=== PATIENT | female | born 1970 | race African-American/Black ===

== ENCOUNTER 2020-06-10 15:26 | Emergency (ER) | payer MEDICAID, SELFPAY ==
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
[2020-06-10 15:44] VITALS: BP 165/90; PULSE 77; RESP 16; TEMP 36.8; O2SAT 99
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
[2020-06-10] MEDS: KETOROLAC (*BKC) 60 MG/2 ML VIAL IM (16:25)
== END 2020-06-10 16:52 | disposition home or self-care (01) ==
PROVIDERS: Emergency Provider Nurse Practitioner Family; PCP Physician Assistant
DX: S39.012A Strain of muscle, fascia and tendon of lower back, initial encounter (principal); V43.62XA Car passenger injured in collision with other type car in traffic accident, initial encounter; M54.31 Sciatica, right side; Z87.891 Personal history of nicotine dependence; I10 Essential (primary) hypertension; Z95.1 Presence of aortocoronary bypass graft
CPT/HCPCS: 72100; 96372; 99213; G0463; J1885

== ENCOUNTER 2020-06-18 15:54 | Outpatient (CLI) | payer BC, SELFPAY ==
--- NOTE | ~2020-06-18 | MM_ITS ---
EXAMINATION: MM screening myah BI w shabbir HISTORY: Screening mammogram TECHNIQUE: Craniocaudal and mediolateral oblique 3-D tomosynthesis images were obtained and synthetic 2-D images were generated. CAD analysis was submitted and interpreted. COMPARISON: No prior mammogram is available for comparison at this institution. BREAST PARENCHYMAL COMPOSITION: There are scattered areas of fibroglandular density. FINDINGS: RIGHT BREAST: An asymmetry is present in the anterior third of the outer breast 5 cm from the nipple on the craniocaudal view. LEFT BREAST: There is no evidence of suspicious mass, calcification, or architectural distortion to s uggest malignancy. IMPRESSION: 1. Right breast asymmetry on the craniocaudal view which may represent the patient's baseline however no comparison is currently available. 2. Comparison with prior mammograms is necessary. BI-RADS Category 0: Incomplete: Needs comparison with prior mammograms. Reviewed, dictated and finalized at location A. IMPRESSION: 1. Right breast asymmetry on the craniocaudal view which may represent the murphy ent's baseline however no comparison is currently available. 2. Comparison with prior mammograms is necessary. BI-RADS Category 0: Incomplete: Needs comparison with prior mammograms.
== END 2020-06-18 15:55 | disposition home or self-care (01) ==
PROVIDERS: PCP Physician Assistant; Visit Provider Physician Assistant
DX: Z12.31 Encounter for screening mammogram for malignant neoplasm of breast (principal); R92.8 Other abnormal and inconclusive findings on diagnostic imaging of breast
CPT/HCPCS: 77063; 77067

== ENCOUNTER 2020-08-24 13:14 | Outpatient (CLI) | payer BC, SELFPAY ==
--- NOTE | ~2020-08-24 | MMUS_ITS ---
EXAMINATION: MM diagnostic mammo unilat RT, US breast RT limited HISTORY: Follow-up right breast asymmetry TECHNIQUE: Additional 3-D tomosynthesis images of the right breast were performed and synthetic 2-D i mages were generated. CAD analysis was submitted and interpreted. High resolution right breast ultras ound was performed. COMPARISON: 06/18/2020 BREAST PARENCHYMAL COMPOSITION: Breast composed of scattered areas of fibroglandular density FINDINGS: MAMMOGRAPHIC FINDINGS: There is persistent asymmetry laterally in the right breast on CC view no discrete abnormality is mariaelena ntified on medial lateral or MLO views. ULTRASOUND: Limited left breast ultrasound: At 9:00, 8 cm from the nipple there are 2 adjacent cysts measuring up to 7 mm in conglomeration. No suspicious solid masses are identified. There is a 4 mm cyst at 10:00, 9 cm from the nipple. IMPRESSION: 1. Focal right breast asymmetry lateral aspect of the right breast is most likely benign. No definite sonographic correlate. Benign cysts are identified in the right breast at 9 and 10:00. 2. Recommend 6 month follow-up diagnostic right mammogram BI-RADS category 3, probably benign findings. Reviewed, dictated and finalized at location A. HER ASSISTANT IMPRESSION: 1. Focal right breast asymmetry lateral aspect of the right breast is most like ly benign. No definite sonographic correlate. Benign cysts are identified in th e right breast at 9 and 10:00. 2. Recommend 6 month follow-up diagnostic right mammogram BI-RADS category 3, probably benign findings.
== END 2020-08-24 13:15 | disposition home or self-care (01) ==
PROVIDERS: PCP Physician Assistant; Visit Provider Physician Assistant
DX: R92.8 Other abnormal and inconclusive findings on diagnostic imaging of breast (principal)
CPT/HCPCS: 76642; 77061; 77065; G0279

== ENCOUNTER 2020-12-10 17:48 | Emergency (ER) | payer BC, SELFPAY ==
[2020-12-10 17:53] VITALS: BP 147/88; PULSE 77; RESP 18; TEMP 36.2; O2SAT 99
--- NOTE | 2020-12-10 19:16 | ED.GENADULT ---
HPI - General Adult General Chief complaint: Back Pain/Injury Stated complaint: back pain Time Seen by Provider: 12/10/20 18:47 Source: patient and RN notes reviewed Mode of arrival: ambulatory Limitations: no limitations History of Present Illness HPI narrative: Patient is 50 years old -Cypriot female presents with lower back pain mainly on the right side radiating to her right foot, shooting pain, tingling and numbness. Started 2 days ago. History of sciatica. Patient denies any recent trauma. Patient denies any trouble bowel movement, urination or saddle numbness or focal neuro deficit. Related Data Home Medications Medication Instructions Recorded Confirmed amlodipine 06/10/20 aspirin 06/10/20 cyclobenzaprine mg 06/10/20 furosemide 06/10/20 ibuprofen 06/10/20 isosorbide mononitrate mg PO 06/10/20 lisinopril 06/10/20 metoprolol tartrate 06/10/20 nitroglycerin mg 06/10/20 Allergies Allergy/AdvReac Type Severity Reaction Status Date / Time Penicillins Allergy Unknown Verified 09/11/18 14:16 sulfamethoxazole Allergy Unknown Verified 09/11/18 14:16 trimethoprim Allergy Unknown Verified 09/11/18 14:16 Chocolate Allergy Unknown Uncoded 09/11/18 14:16 Review of Systems Review of Systems: Narrative: CONSTITUTIONAL: Denies fever, chills, or sweats. EYES: Denies visual changes, redness, or discharge. ENT: Denies rhinorrhea, congestion, sore throat, or otalgia. CARDIOVASCULAR: Denies chest pain, palpitations, or edema. RESPIRATORY: Denies cough or dyspnea. GASTROINTESTINAL: Denies abdominal pain, nausea, vomiting, or diarrhea. GENITOURINARY: Denies dysuria or hematuria. SKIN: Denies rash or itching. MUSCULOSKELETAL: Denies back pain, joint pain, or myalgia. NEUROLOGIC: Denies headache, numbness, or weakness. PSYCHIATRIC: Denies anxiety or depression. [facility] Past Medical History Medical History Closed left ankle fracture Heart disease Hypertension Surgical History Surgical History History of heart surgery Double bypass History of hysterectomy History of tonsillectomy Family History Family History Father Acute myocardial infarction Mother Hypertension Diabetes mellitus Social History Social History Smoking status: Former smoker Tobacco type: cigarettes Second hand tobacco smoke exposure: Yes Smoking end date: 09/18/04 Alcohol intake: current Substance use: never Gender identity (if verbalized by the patient): Female Exam Narrative: Exam Narrative: General appearance: Well-developed, well-nourished Skin: Normal color Head: Normocephalic, nontraumatic Eyes: Clear conjunctiva ENT: Oropharynx normal, ears normal, nose normal Neck: Supple, nontender Chest and respiratory: Airway patent, no respiratory distress, no accessory muscle use Heart: Regular rate/rhythm Abdomen: Soft, nontender, no organomegaly, quiet bowel sounds Vascular: Normal peripheral pulses, normal capillary refill. Musculoskeletal: Diffuse pain across lumbar spine mainly at the right buttock, Neurologic: Alert and oriented ?3, positive right lower extremity leg raising test Course Course Emergency Course: Improving Vital Signs Vital signs: Vital Signs Temperature 36.2 C L 12/10/20 17:53 Pulse Rate 77 12/10/20 17:53 Respiratory Rate 18 12/10/20 17:53 Blood Pressure 147/88 H 12/10/20 17:53 Pulse Oximetry 99 12/10/20 17:53 Temperature 36.2 C L 12/10/20 17:53 Pulse Rate 77 12/10
[2020-12-10] MEDS: HYDROmorphone HCL INJ (*CRX) 1 MG/ML SYR IV PUSH (19:37)
[2020-12-10] MEDS: ONDANSETRON HCL ODT 4 MG TABLET PO (19:38)
[2020-12-10] MEDS: IBUPROFEN 400 MG TABLET 800 MG PO (19:38)
== END 2020-12-10 19:41 | disposition home or self-care (01) ==
PROVIDERS: Emergency Provider Emergency Medicine; PCP Physician Assistant
DX: M54.16 Radiculopathy, lumbar region (principal); Z79.82 Long term (current) use of aspirin; I11.9 Hypertensive heart disease without heart failure; Z87.891 Personal history of nicotine dependence; Z95.1 Presence of aortocoronary bypass graft
CPT/HCPCS: 96374; 99284; A9270; J1170

== ENCOUNTER 2021-07-16 14:45 | Outpatient (RCR) | payer BC, SELFPAY ==
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
--- NOTE | 2021-07-13 11:54 | PCPTNOTE ---
Patient called & cancelled scheduled appointment this date due to not feeling well.
--- NOTE | 2021-07-16 15:14 | PCPTNOTE ---
Patient did not show up for scheduled appointment this date. Called & had to leave a message
--- NOTE | 2021-07-20 10:03 | PCPTNOTE ---
Patient did not show up for scheduled appointment this date. Called and left message about missed appointment. Reminded of upcoming appointment on Monday07/23/21 @ 8:00am.
--- NOTE | 2021-07-23 08:09 | PCPTNOTE ---
Patient did not show up for scheduled appointment this date. Left message on phone. Will DC therapy due to repeated no show.
--- NOTE | 2021-07-23 08:10 | PCPTNOTE ---
Admitting Provider: Attending Provider: Julia Morris, CIARA Patient:Javier Glover Date of :1970 Physical Therapy Discharge Summary Patient has not returned for any further treatments since her initial evaluation on 07/08/21. Due to her repeated no show of therapy visits, she will discharged from therapy services at this time. Her goals have been not met due to she was not seen for any follow up therapy visits. Thank you for referring this patient to [facility]. Please review, sign, date and return this discharge summary ANTONIO. I have been updated about the patient's current status and I agree with discharge from the above service at this time. Referring Physician Date
== END 2021-07-23 15:49 | disposition home or self-care (01) ==
LOC: ANHPT 14:45
PROVIDERS: PCP Physician Assistant; Visit Provider Physician Assistant
DX: M54.30 Sciatica, unspecified side (principal)
CPT/HCPCS: 97110; 97162

== ENCOUNTER 2021-08-22 11:33 | Emergency (ER) | payer BC, SELFPAY ==
--- NOTE | ~2021-08-22 | XR_ITS ---
EXAMINATION: XR tibia fibula LT 2V, XR foot LT min 3V, XR ankle LT min 3V DATE: 08/22/2021 12:06 INDICATION: Lateral left ankle pain post fall TECHNIQUE: 1. Anteroposterior and lateral views of the left tibia and fibula were obtained. 2. Anteroposterior, mortise, additional oblique and lateral view of the left ankle were obtained. 3. Dorsoplantar, two oblique and lateral views of the left foot were obtained. COMPARISON: None. FINDINGS: Old fractures of the distal left tibia and fibula which have healed in essentially anatomic alignment . There is some heterotopic ossification along the distal tibiofibular syndesmosis. Suggestion of a t iny minimally displaced avulsion fracture at the tip of the medial malleolus. No other fractures iden tified. Profiled joint spaces appear relatively preserved. Small Achilles and plantar calcaneal spurs . No ankle joint effusion. Mild soft tissue swelling about the tip of the lateral malleolus. IMPRESSION: 1. Old healed distal left tibia and fibular fractures with suggestion of an acute minimally displaced avulsion fracture at the tip of the medial malleolus. Differential would include an additional or he terotopic ossicle related to chronic trauma. Correlate for point tenderness at this location. Reviewed, dictated and finalized at location A. AL SALES REPRESENTATIVE IMPRESSION: 1. Old healed distal left tibia and fibular fractures with suggestion of an acu te minimally displaced avulsion fracture at the tip of the medial malleolus. Di fferential would include an additional or heterotopic ossicle related to chroni c trauma. Correlate for point tenderness at this location. IMPRESSION: 1. Old healed distal left tibia and fibular fractures with suggestion of an acu te minimally displaced avulsion fracture at the tip of the medial malleolus. Di fferential would include an additional or heterotopic ossicle related to chroni c trauma. Correlate for point tenderness at this location.
[2021-08-22 11:35] VITALS: BP 146/94; PULSE 100; RESP 16; TEMP 36.2; O2SAT 99
--- NOTE | 2021-08-22 11:59 | PC.NURSE ---
Pt to XRAY via w/c at this time.
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
== END 2021-08-22 13:45 | disposition home or self-care (01) ==
PROVIDERS: Emergency Provider Nurse Practitioner; PCP Physician Assistant
DX: S82.52XA Displaced fracture of medial malleolus of left tibia, initial encounter for closed fracture (principal); I10 Essential (primary) hypertension; E78.5 Hyperlipidemia, unspecified; W01.0XXA Fall on same level from slipping, tripping and stumbling without subsequent striking against object, initial encounter
CPT/HCPCS: 29515; 73590; 73610; 73630; 99284

== ENCOUNTER 2022-02-08 09:57 | Outpatient (CLI) | payer BC, SELFPAY ==
[2022-02-08 11:39] LABS: Iron 98 ug/dL (37-170)
[2022-02-08 11:48] LABS: Percent Iron Saturation 34 % (20-50)
== END 2022-02-08 09:58 | disposition home or self-care (01) ==
PROVIDERS: PCP Physician Assistant; Visit Provider Nurse Practitioner Family
DX: R74.8 Abnormal levels of other serum enzymes (principal)
CPT/HCPCS: 36415; 81256; 82728; 83540; 83550; 86038

== ENCOUNTER 2024-04-10 11:05 | Outpatient (CLI) | payer OTHER, SELFPAY ==
--- NOTE | ~2024-04-10 | XR_ITS ---
XR hip BI 2V w AP pelvis Ordering provider: Julia Morris, CIARA History: . Low back pain . Comparison: None. FINDINGS: BONES: No acute fracture or dislocation. HIP JOINT SPACES: Mild osteoarthritic changes bilaterally SACROILIAC JOINT SPACES/LUMBAR SPINE: The sacroiliac joint spaces are normal. Mild degenerative shah es of the visualized lower lumbar spine. PUBIC SYMPHYSIS: Normal. SOFT TISSUES: Normal. IMPRESSION: No acute osseous abnormality of the bilateral hips and pelvis. Reviewed, dictated and finalized at location A.
--- NOTE | ~2024-04-10 | XR_ITS ---
3 VIEWS LUMBAR SPINE Ordering provider: Julia Morris, CIARA History: . Low back pain . Comparison: June 10, 2020 FINDINGS: VERTEBRAL BODIES: Sacralization of L5. No visible fracture or subluxation. Degenerative changes of th e spine. DISK SPACES: Normal Facet joint disease at the level of L4-L5 and L5-S1. SOFT TISSUES: Normal. IMPRESSION: No acute osseous abnormality lumbar spine. Reviewed, dictated and finalized at location A.
== END 2024-04-10 11:06 | disposition home or self-care (01) ==
LOC: ANHIMG 11:14
PROVIDERS: PCP Physician Assistant; Visit Provider Physician Assistant
DX: M54.50 Low back pain, unspecified (principal); M25.551 Pain in right hip
CPT/HCPCS: 72100; 73521

== ENCOUNTER 2024-06-07 09:05 | Emergency (ER) | payer OTHER, SELFPAY ==
--- NOTE | 2024-06-07 09:20 | ED.BACK ---
HPI - Back Pain/Injury General Chief Complaint: Back Pain/Injury Stated Complaint: Back Pain Time Seen by Provider: 06/07/24 09:20 Source: patient Mode of arrival: ambulatory Limitations: no limitations History of Present Illness HPI Narrative: 53 yo F presents with hx of chronic back pain. c/o low back pain without radiation. PCP ordering PT and MRI but having difficulting finding somewhere to accept pt's insurance. Ambulatory with steady gait. No numbness or tingling to lower extremities. No loss of bowel or bladder. 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 No injury. All systems reviewed and negative except as noted above. Related Data Home Medications Medication Instructions Recorded Confirmed amlodipine 5 mg tablet 5 mg PO DAILY 06/10/20 06/07/24 aspirin 81 mg chewable tablet 81 mg PO DAILY 06/10/20 06/07/24 furosemide 20 mg tablet 20 mg PO DAILY 06/10/20 06/07/24 lisinopril 40 mg tablet 40 mg PO DAILY 06/10/20 06/07/24 metoprolol tartrate 50 mg tablet 50 mg PO DAILY 06/10/20 06/07/24 atorvastatin 80 mg tablet 80 mg PO DAILY 12/23/21 06/07/24 spironolactone 25 mg tablet 25 mg PO DAILY 12/23/21 06/07/24 Allergies Allergy/AdvReac Type Severity Reaction Status Date / Time Penicillins Allergy Intermediate Rash Verified 06/07/24 09:12 sulfamethoxazole Allergy Intermediate Rash Verified 06/07/24 09:12 trimethoprim Allergy Intermediate Rash Verified 06/07/24 09:12 Chocolate Allergy Severe Swelling Uncoded 06/07/24 09:12 of Lip/Tongue/Throat Review of Systems Review of Systems: CONSTITUTIONAL: Denies fever, chills, or sweats. EYES: Denies visual changes, redness, or discharge. ENT: Denies rhinorrhea, congestion, sore throat, or otalgia. CARDIOVASCULAR: Denies chest pain, palpitations, or edema. RESPIRATORY: Denies cough or dyspnea. GASTROINTESTINAL: Denies abdominal pain, nausea, vomiting, or diarrhea. GENITOURINARY: Denies dysuria or hematuria. SKIN: Denies rash or itching. MUSCULOSKELETAL: Reports low back pain. Denies joint pain, or myalgia. NEUROLOGIC: Denies headache, numbness, or weakness. PSYCHIATRIC: Denies anxiety or depression. All other systems reviewed are negative, except as documented in HPI. [facility] Past Medical History Medical History (Updated 06/07/24 @ 09:27 by Divya Swanson NP) Anemia Anxiety Arthritis Closed left ankle fracture Elevated liver enzymes Heart attack Heart disease Hyperlipemia Hypertension Nondisplaced fracture of medial malleolus of left tibia Obese Osteoporosis Surgical History Surgical History History of History of heart surgery Double bypass History of hysterectomy History of tonsillectomy Family History Family History Father Acute myocardial infarction Mother Hypertension Diabetes mellitus Other Cerebrovascular accident Depression Social History Social History Smoking status: Former smoker Tobacco type: cigarettes Second hand tobacco smoke exposure: Yes Smoking end date: 09/18/04 Alcohol intake: current Substance use: never Living arrangements: with family Occupation/Education: unemployed Gender identity (if verbalized by the patient): Female Sexual Orientation (if Verbalized by the Patient): Straight or Heterosexual Comments At time of signature, agree with nursing past medical, surgical, social and family history. There is no relevant family history pertinent to the presenting complaint. Exam Narrative: GENERAL: This is a well-nourished, well-developed patient, in no apparent distress. HEAD: normocephalic, atraumatic. EYES: PERRL. Sclera clear/white. Vision is grossly intact. EARS: External ears normal NOSE: External nose normal . NECK: Neck supple,
[2024-06-07 11:21] VITALS: BP 141/87; PULSE 70; RESP 16; TEMP 36.8; O2SAT 98
== END 2024-06-07 09:34 | disposition home or self-care (01) ==
PROVIDERS: Emergency Provider Nurse Practitioner Family; PCP Physician Assistant
DX: M54.50 Low back pain, unspecified (principal); Z87.891 Personal history of nicotine dependence; M19.90 Unspecified osteoarthritis, unspecified site; I25.2 Old myocardial infarction; E78.5 Hyperlipidemia, unspecified; I10 Essential (primary) hypertension; M81.0 Age-related osteoporosis without current pathological fracture; E66.9 Obesity, unspecified; Z68.41 Body mass index [BMI] 40.0-44.9, adult; Z95.1 Presence of aortocoronary bypass graft
CPT/HCPCS: 99213; G0463

== ENCOUNTER 2024-08-01 19:02 | Emergency (ER) | payer OTHER, SELFPAY ==
[2024-08-01 19:07] VITALS: BP 158/86; PULSE 77; RESP 16; TEMP 36.6; O2SAT 100
--- NOTE | 2024-08-01 19:10 | ED.URI ---
HPI - URI/Sore Throat General Chief Complaint: Upper Respiratory Infection Stated Complaint: Dizzines/Sinus Time Seen by Provider: 08/01/24 19:10 Source: patient, RN notes reviewed and old records reviewed Mode of arrival: ambulatory Limitations: no limitations History of Present Illness HPI Narrative: 53-year-old female presents to the [facility] with complaints of sinus congestion, frontal headache. Patient reports intermittent dizziness. Symptoms x2 days. Denies any blurry vision or change in vision. Denies any numbness or tingling. No chest pain or shortness of breath, denies any coughing. Denies any fevers Related Data Home Medications Medication Instructions Recorded Confirmed amlodipine 5 mg tablet 5 mg PO DAILY 06/10/20 08/01/24 aspirin 81 mg chewable tablet 81 mg PO DAILY 06/10/20 08/01/24 furosemide 20 mg tablet 20 mg PO DAILY 06/10/20 08/01/24 lisinopril 40 mg tablet 40 mg PO DAILY 06/10/20 08/01/24 metoprolol tartrate 50 mg tablet 50 mg PO DAILY 06/10/20 08/01/24 atorvastatin 80 mg tablet 80 mg PO DAILY 12/23/21 08/01/24 spironolactone 25 mg tablet 25 mg PO DAILY 12/23/21 08/01/24 Allergies Allergy/AdvReac Type Severity Reaction Status Date / Time Penicillins Allergy Intermediate Rash Verified 08/01/24 19:08 sulfamethoxazole Allergy Intermediate Rash Verified 08/01/24 19:08 trimethoprim Allergy Intermediate Rash Verified 08/01/24 19:08 Chocolate Allergy Severe Swelling Uncoded 08/01/24 19:08 of Lip/Tongue/Throat Review of Systems Review of Systems: All systems reviewed & are unremarkable except as noted in HPI and below Constitutional: Constitutional: Reports no additional constitutional complaints ENT: Reports as per HPI Cardiovascular: Cardiovascular: Reports no additional cardiovascular complaints, Denies chest pain and Denies dyspnea Respiratory: Respiratory: Reports no additional respiratory complaints, Denies chest congestion, Denies cough and Denies dyspnea Gastrointestinal: Gastrointestinal: Reports no additional gastrointestinal complaints, Denies abdominal pain, Denies nausea and Denies vomiting Musculoskeletal: Musculoskeletal: Reports no additional musculoskeletal complaints Integumentary/Breasts: Skin/Breast: Reports system reviewed and no additional complaints, except as docu PMFSH Past Medical History Medical History Anemia Anxiety Arthritis Closed left ankle fracture Elevated liver enzymes Heart attack Heart disease Hyperlipemia Hypertension Nondisplaced fracture of medial malleolus of left tibia Obese Osteoporosis Surgical History Surgical History History of History of heart surgery Double bypass History of hysterectomy History of tonsillectomy Family History Family History Father Acute myocardial infarction Mother Hypertension Diabetes mellitus Other Cerebrovascular accident Depression Social History Social History Smoking status: Former smoker Tobacco type: cigarettes Second hand tobacco smoke exposure: Yes Smoking end date: 09/18/04 Alcohol intake: current Substance use: never Living arrangements: with family Occupation/Education: unemployed Gender identity (if verbalized by the patient): Female Sexual Orientation (if Verbalized by the Patient): Straight or Heterosexual Comments At the time of my signature, I reviewed and agree with the nursing past medical, surgical, social, and family history. There is no relevant family history pertinent to the patient complaint. Exam Const: General: cooperative, healthy appearing, comfortable, no acute distress, well developed, alert and well nourished Nutritional Appearance: well nourished Orientation/consciousness: patient oriented x3 Limitations: no limitations HENMT: Head: normal to inspection Ears: hearing grossly normal bilaterally, external ears normal, TM's normal bilaterally, EAC's normal, mastoids normal and no periauricular adenopathy Face/Nose/Sinus: Normal external nose present, No nasal discharge present, normal facial exam, face symmetric and sinus tenderness Face and sinus: normal facial exam and face symmetric Mouth: Yes Normal oral and palatal mucosa present, Yes lip normal and Yes tongue normal Throat: uvula midline, postnasal drainage and no uvular edema Eyes: General: appearance normal, both eyes and all related structures Alignment and Position: alignment normal Periorbital: periorbital findings normal Neck: Neck: normal visual inspection, full ROM, no lymphadenopathy and no meningeal signs Chest: Chest palpation & inspection: normal inspection of the chest Resp: Effort & Inspection: normal respiratory effort and able to speak in complete sentences Auscultation: clear to auscultation bilaterally, no crackles, no rales, no rhonchi and no wheezes Cardio: Rate: regular rate Skin: General skin exam: normal color and no rashes or lesions noted Lesions: no lesions Rashes: no rashes Wounds: no wounds Neuro: General: patient oriented x3, gait normal, tone normal, moves all extremities and no meningeal signs Cognition (Neuro): normal cognition Speech: normal speech Gait exam (Neuro): Normal gait present Extrem: General: normal to inspection, full ROM, capillary refill normal and normal gait Psych: Appearance: grossly normal and well kempt Mental Status: mental status grossly normal Speech and movement: Normal speech and movement present and Clear speech present Affect: normal affect Attitude: cooperative Course Course Level of Care: Express Care Visit Vital Signs Vital signs: Vital Signs Temperature 97.8 F 08/01/24 19:07 Pulse Rate 77 08/01/24 19:07 Respiratory Rate 16 08/01/24 19:07 Blood Pressure 158/86 H 08/01/24 19:07 Pulse Oximetry 100 08/01/24 19:07 Oxygen Delivery Room Air 08/01/24 19:07 Temperature 97.8 F 08/01/24 19:07 Pulse Rate 77 08/01/24 19:07 Respiratory Rate 16 08/01/24 19:07 Blood Pressure 158/86 H 08/01/24 19:07 Pulse Oximetry 100 08/01/24 19:07 Oxygen Delivery Room Air 08/01/24 19:07 Reviewed MDM - URI/Sore Throat MDM Narrative Medical decision making narrative: Patient sitting comfortably in exam room. Nontoxic, vitals stable except blood pressure mildly elevated. Patient presents with 2 day history of URI symptoms. No treatment prior to arrival patient's flu and COVID test was negative Patient appropriate for outpatient treatment of viral URI and follow-up Discharge instructions reviewed with patient, as well as provided in writing per nursing staff. The instructions also include specific and strict return/GO TO THE ER as well as f/u information. All questions have been answered, and the patient deny any further questions with discharge and discharge plan. Some parts of this dictation were generated by voice recognition software and may contain typographical and/or grammatical inaccuracies. Differential Diagnosis Differential diagnosis: Likely upper respiratory infection, otitis media, sinusitis, viral infection, influenza and pharyngitis Lab Data Labs: Lab Results 08/01/24 Range/Units 19:15 POC Influenza A Ag Negative (Negative) POC Influenza B Ag Negative (Negative) POC SARS CoV-2 Ag Negative (Negative) Reviewed Critical Care Time Critical Care Time Critical Care Time: No Discharge Plan Discharge Clinical Impression: Sinusitis Patient Disposition: Home, Self-Care Condition: Stable Instructions: Sinusitis (ED) Additional Instructions: Today your blood pressure was 158/86. Is recommended follow-up with primary care provider within 2 weeks to have this rechecked Your rapid COVID test were negative Your rapid flu test was negative Your symptoms are likely due to a viral illness, which is not treated with antibiotics. -Alternate Tylenol and Motrin per package directions for fever or pain. -Antihistamine medication such as Benadryl at night and Zyrtec/Claritin/Edna during the day can help improve symptoms. -doing daily nasal irrigations can help relieve pressure your sinuses. Things like a Neti pot -Use Flonase twice a day for 5 days then daily to help reduce the inflammation and dry up your sinuses. -You can also use Coricidin HBP or Mucinex. Be sure to drink plenty of water with these medications at least 8 ounces with every dose and it is important to drink 8 to 10 glasses of water per day. Water is a natural decongestant -Eat and drink things that are easy to swallow, like tea or soup, or popsicles. -Oral rinses such as: Salt water gargles and/or may use topical anesthetic (eg. Chloraseptic spray) or lozenges to relieve dryness or throat pain). -Frequent hand washing or hand security tester is one of the best ways to prevent spread of infection. -Using a vaporizer or humidifier at night will also help thin secretions and help with coughing up phlegm. -Follow up with primary care provider in 7-10 days if condition is not improving - For new or worsening symptoms go directly to the nearest ER Patient Language: Romanian Prescriptions: No Action amlodipine 5 mg tablet 5 mg PO DAILY metoprolol tartrate 50 mg tablet 50 mg PO DAILY furosemide 20 mg tablet 20 mg PO DAILY lisinopril 40 mg tablet 40 mg PO DAILY aspirin 81 mg Tablet,Chewable 81 mg PO DAILY methocarbamol 750 mg tablet 750 mg PO Q8H PRN (Reason: muscle pain/spasm) Qty: 30 0RF atorvastatin 80 mg tablet 80 mg PO DAILY spironolactone 25 mg tablet 25 mg PO DAILY Follow-up/Referrals: Alexandra,CIARA Sigala [Primary Care Provider] - 1 Week ([facility] care follow up blood pressure check 158/86) Stand Alone Forms: Work/School Release IP Time of Disposition: 19:33
[2024-08-01 19:38] LABS: EDCOVIDSCREEN Negative (Negative); EDINFLUASCREEN Negative (Negative); EDINFLUBSCREEN Negative (Negative)
== END 2024-08-01 19:35 | disposition home or self-care (01) ==
PROVIDERS: Emergency Provider Nurse Practitioner; PCP Physician Assistant
DX: J32.9 Chronic sinusitis, unspecified (principal); I10 Essential (primary) hypertension; E78.5 Hyperlipidemia, unspecified; I25.2 Old myocardial infarction; Z79.82 Long term (current) use of aspirin; Z79.899 Other long term (current) drug therapy; Z87.891 Personal history of nicotine dependence; Z20.822 Contact with and (suspected) exposure to COVID-19
CPT/HCPCS: 87426; 87804; 99212; G0463

== ENCOUNTER 2025-03-10 13:37 | Emergency (ER) | payer OTHER, SELFPAY ==
--- NOTE | 2025-03-10 13:45 | ED_ITS ---
HPI - Back Pain/Injury General Chief Complaint: Back Pain/Injury Stated Complaint: sharp back pain Time Seen by Provider: 03/10/25 13:40 Source: patient Mode of arrival: ambulatory Limitations: no limitations History of Present Illness HPI Narrative: Patient is a 54-year-old female who presents with low back pain and spasms started approximately 2 hours prior to arrival when she was reaching up to a high shelf at work. States she heard a pop and then started having the sharp pain and radiating down left thigh. When she sat down pain started radiating down both thighs. Patient has had similar episodes in the past last being roughly 2 years ago. Patient has had workup including MRI with no significant findings. Denies any bowel or bladder incontinence. Has not taken anything for pain. Did not take blood pressure medicine today. Related Data Home Medications ?Medication ?Instructions ?Recorded ?Confirmed ?Last Taken ?Type amlodipine 5 mg tablet 5 mg PO DAILY 06/10/20 08/01/24 Unknown History aspirin 81 mg chewable tablet 81 mg PO DAILY 06/10/20 08/01/24 Unknown History furosemide 20 mg tablet 20 mg PO DAILY 06/10/20 08/01/24 Unknown History lisinopril 40 mg tablet 40 mg PO DAILY 06/10/20 08/01/24 Unknown History metoprolol tartrate 50 mg tablet 50 mg PO DAILY 06/10/20 08/01/24 Unknown History atorvastatin 80 mg tablet 80 mg PO DAILY 12/23/21 08/01/24 Unknown History spironolactone 25 mg tablet 25 mg PO DAILY 12/23/21 08/01/24 Unknown History Allergies Allergy/AdvReac Type Severity Reaction Status Date / Time Penicillins Allergy Intermediate Rash Verified 03/10/25 13:56 sulfamethoxazole Allergy Intermediate Rash Verified 03/10/25 13:56 trimethoprim Allergy Intermediate Rash Verified 03/10/25 13:56 Chocolate Allergy Severe Swelling Uncoded 03/10/25 13:56 of Lip/Tongue/Throat Review of Systems Review of Systems: All systems reviewed & are unremarkable except as noted in HPI and below Constitutional: Constitutional: Denies body ache(s), Denies chills, Denies fatigue, Denies fever(s), Denies headache(s), Denies malaise and Denies weakness Eyes: Eyes: Denies blurry vision, Denies irritation and Denies loss of vision ENT: Denies otalgia, Denies headache(s), Denies nasal discharge, Denies sinus pain and Denies sore throat Cardiovascular: Cardiovascular: Denies chest pain, Denies irregular heart rhythm and Denies dyspnea Respiratory: Respiratory: Denies dyspnea Gastrointestinal: Gastrointestinal: Denies abdominal pain, Denies melena, Denies hematochezia, Denies diarrhea, Denies nausea and Denies vomiting Musculoskeletal: Musculoskeletal: Reports back pain, Denies myalgias and Denies arthralgias Integumentary/Breasts: Skin/Breast: Denies pruritus and Denies rash Neurologic: Denies headache(s), Denies loss of vision and Denies weakness Psychiatric: Psychiatric: Reports no additional psychiatric complaints Endocrine: Endocrine: Denies fatigue PMFSH Past Medical History Medical History Obese Elevated liver enzymes Nondisplaced fracture of medial malleolus of left tibia Osteoporosis Heart attack Arthritis Anxiety Anemia Hyperlipemia Closed left ankle fracture Heart disease Hypertension Surgical History Surgical History History of History of tonsillectomy History of heart surgery Double bypass History of hysterectomy Family History Family History Father Acute myocardial infarction Mother Hypertension Diabetes mellitus Other Cerebrovascular accident Depression Social History Social History Smoking status: Former smoker Tobacco type: cigarettes Second hand tobacco smoke exposure: Yes Smoking end date: 09/18/04 Alcohol intake: current Substance use: never Living arrangements: with family Occupation/Education: unemployed Gender identity (if verbalized by the patient): Female Sexual Orientation (if Verbalized by the Patient): Straight or Heterosexual Comments At time of signature, agree with nursing past medical, surgical, social and family history. There is no relevant family history pertinent to the presenting complaint. Exam Const: General: cooperative, healthy appearing, comfortable, no acute distress and well nourished Nutritional Appearance: well nourished [place] ation/consciousness: patient oriented x3 Limitations: no limitations HENMT: Head: normal to inspection, normocephalic and atraumatic Ears: hearing grossly normal bilaterally and external ears normal Face/Nose/Sinus: Normal external nose present, normal facial exam and face symmetric Face and sinus: normal facial exam and face symmetric Mouth: Yes lip normal Eyes: General: appearance normal, both eyes and all related structures Alignment and Position: alignment normal and position normal Periorbital: periorbital findings normal Eyelids: eyelids normal Pupils: Equal, round and reactive pupils present EOM: EOMs intact bilaterally Neck: Neck: normal visual inspection, full ROM and supple Chest: Chest palpation & inspection: normal inspection of the chest Resp: Effort & Inspection: normal respiratory effort and able to speak in complete sentences Auscultation: clear to auscultation bilaterally Cardio: Rate: regular rate Rhythm: regular rhythm Heart sounds: S1 normal heart sound present and S2 normal heart sound present GI: Inspection: normal to inspection Back/Spine/Pelvis: Back: no CVA tenderness Cervical Spine: normal cervical lordosis, cervical ROM normal, No cervical muscular tenderness and No Cervical spine tenderness Thoracic/Lumbar Spine: thoracic and lumbar spine normal to inspection, pain with thoraco-lumbar ROM, paraspinal muscle tenderness bilaterally in the mid lumbar and in the lower lumbar, No thoracic spinal tenderness and No lumbar spinal tenderness Skin: General skin exam: normal color and no rashes or lesions noted Neuro: General: patient oriented x3 and moves all extremities Cranial nerv es: Yes Equal, round and reactive pupils present Cognition (Neuro): normal cognition Speech: normal speech Gait exam (Neuro): Normal gait present Motor exam (neuro): 5/5 motor strength present throughout, Normal motor muscle tone present throughout and Motor abnormalities not present Sensory Exam: normal sensation Extrem: General: normal to inspection, full ROM and no edema Psych: Appearance: grossly normal and well kempt Mental Status: mental status grossly normal Speech and movement: Normal speech and movement present Affect: normal affect Attitude: cooperative Thought process: Normal thought process present Course Course Emergency Course: Patient is aware of diagnosis, understands and agrees to treatment plan. Anticipatory guidance given. Patient agrees to follow-up as directed and is aware of reasons to seek care at the emergency department. Portions of this record may have been created with voice recognition software Level of Care: Express Care Visit Vital Signs Vital signs: Vital Signs Temperature 36.7 C 03/10/25 13:49 Pulse Rate 83 03/10/25 13:49 Respiratory Rate 16 06/23/25 13:49 Blood Pressure 181/102 H 03/10/25 13:49 Pulse Oximetry 99 03/10/25 13:49 Temperature 36.7 C 03/10/25 13:49 Pulse Rate 83 03/10/25 13:49 Respiratory Rate 16 03/10/25 13:49 Blood Pressure 181/102 H 03/10/25 13:49 Pulse Oximetry 99 03/10/25 13:49 Reviewed MDM - Back Pain/Injury MDM Narrative Medical decision making narrative: Pt well hydrated appearing, in no respiratory distress, hemodynamically stable. Recommend supportive care. The patient is stable at time of discharge the clinical impression was discussed and the patient was given the opportunity to ask questions, which were addressed as completely as possible given the information available at present. Anticipatory guidance and return to care precautions were discussed and the importance of primary care follow-up was stressed and encouraged. The patient voiced understanding of the plan, indications to return, and the need for follow-up. Exam findings show no acute concerns or changes Patient is appropriate for outpatient treatment and follow-up. Differential Diagnosis Differential diagnosis: Likely lumbar radiculopathy, sciatica, strain of lumbar region and discitis Medical Records Attestation: I reviewed the patient's medical records. Discharge Plan Discharge Clinical Impression: Sciatica Qualifiers: Laterality: bilateral Qualified Code(s): M54.31 - Sciatica, right side Strain of lumbar region Qualifiers: Encounter type: initial encounter Qualified Code(s): S39.012A - Strain of muscle, fascia and tendon of lower back, initial encounter Patient Disposition: Home Condition: Stable Instructions: Low Back Strain (ED) Additional Instructions: Take there is in the morning with food, take muscle relaxers every 8 hours as needed for muscle spasm. do not drive or make any important decisions while on this medication for it can make you drowsy Exercise:Combine aerobic exercise, like walking or swimming, with specific exercises to keep the muscles in your back and abdomen strong and flexible.bed rest is not recommended. Proper Lifting:Be sure to lift heavy items with your legs, not your back. Do not bend over to pick something up. Keep your back straight and bend at your knees. Weight:Maintain a healthy weight. Being overweight puts added stress on your lower back. Avoid Smoking:Both the smoke and the nicotine cause your spine to age faster than normal. Proper Posture:Good posture is important for avoiding future problems. A therapist can teach you how to safely stand, sit, and lift. Use warm moist heat or ice to help with pain. Follow up with Primary provider in 2-3 days, This may become a chronic condition and they will be the one to help manage your pain and order additional testing. Follow-up with your doctor for further care and evaluation or seek ER if you develop problems with bladder/bowel function, weakness or loss of feeling in one or both of your legs. Your blood pressure was elevated above 120/80 today at Urgent Care. This puts you above the threshold for follow up visit with a primary care provider. High blood pressure does not usually cause any symptoms, however it may lead to kidney failure, stroke, heart disease just to name a few if untreated . Many people are anxious when seeing a provider or nurse. As a result, you are not diagnosed with hypertension at this time unless your blood pressure is persistently high at two office visits at least one week apart. Some things that can help lower blood pressure are lifestyle modifications, such as light exercise, decreased salt in diet, and weight loss. It is important to follow up with a PCP about this within 1 week. Patient Language: Kinyarwanda Prescriptions: New prednisone 20 mg tablet 40 mg PO DAILY 5 Days Qty: 10 0RF baclofen 10 mg tablet 10 mg PO TID 5 Days Qty: 15 0RF lidocaine 5 % adhesive patch,medicated 1 patch topical DAILY Qty: 15 0RF Rx Instructions: leave on most painful area for up to 12 hrs No Action amlodipine 5 mg tablet 5 mg PO DAILY metoprolol tartrate 50 mg tablet 50 mg PO DAILY furosemide 20 mg tablet 20 mg PO DAILY lisinopril 40 mg tablet 40 mg PO DAILY aspirin 81 mg Tablet,Chewable 81 mg PO DAILY atorvastatin 80 mg tablet 80 mg PO DAILY spironolactone 25 mg tablet 25 mg PO DAILY Follow-up/Referrals: Alexandra,CIARA Sigala [Primary Care Provider] - 3 Days Stand Alone Forms: Work/School Release IP Time of Disposition: 14:24
[2025-03-10 13:49] VITALS: BP 181/102; PULSE 83; RESP 16; TEMP 36.7; O2SAT 99
== END 2025-03-10 14:31 | disposition home or self-care (01) ==
PROVIDERS: Emergency Provider Nurse Practitioner Family; PCP Physician Assistant
DX: M54.31 Sciatica, right side (principal); S39.012A Strain of muscle, fascia and tendon of lower back, initial encounter; I10 Essential (primary) hypertension; E78.5 Hyperlipidemia, unspecified; I25.2 Old myocardial infarction; Z87.891 Personal history of nicotine dependence; X50.0XXA Overexertion from strenuous movement or load, initial encounter; Y99.0 Civilian activity done for income or pay
CPT/HCPCS: 99213; G0463

== ENCOUNTER 2025-06-25 16:27 | Emergency (ER) | payer OTHER, SELFPAY ==
[2025-06-25 16:38] VITALS: BP 183/95; PULSE 80; RESP 16; TEMP 36.8; O2SAT 96
--- NOTE | 2025-06-25 18:02 | ED.UPPEXIN ---
HPI - Extremity Injury (Upper) General Chief Complaint: Extremity Injury, Upper Stated Complaint: left shoulder injury Time Seen by Provider: 06/25/25 16:47 Source: patient and RN notes reviewed Mode of arrival: ambulatory Limitations: no limitations History of Present Illness HPI narrative: 54-year-old female patient presents today with left shoulder pain. This morning around 10:00 a.m., patient was reaching above her head at work and felt a sharp pain in her anterior shoulder that then radiated down to her hand. As she continued to work she noted some tingling to the arm and hand as well. She took a dose of naproxen bit later, which did not provide much relief. She currently rates her pain a 07/28. Related Data Home Medications ?Medication ?Instructions ?Recorded ?Confirmed ?Last Taken ?Type amlodipine 5 mg tablet 5 mg PO DAILY 06/10/20 08/01/24 Unknown History aspirin 81 mg chewable tablet 81 mg PO DAILY 06/10/20 08/01/24 Unknown History furosemide 20 mg tablet 20 mg PO DAILY 06/10/20 08/01/24 Unknown History lisinopril 40 mg tablet 40 mg PO DAILY 06/10/20 08/01/24 Unknown History metoprolol tartrate 50 mg tablet 50 mg PO DAILY 06/10/20 08/01/24 Unknown History atorvastatin 80 mg tablet 80 mg PO DAILY 12/23/21 08/01/24 Unknown History hydralazine 25 mg tablet mg 06/25/25 Unknown History hydralazine 50 mg tablet mg 06/25/25 Unknown History Allergies Allergy/AdvReac Type Severity Reaction Status Date / Time Penicillins Allergy Intermediate Rash Verified 06/25/25 16:35 sulfamethoxazole Allergy Intermediate Rash Verified 06/25/25 16:35 trimethoprim Allergy Intermediate Rash Verified 06/25/25 16:35 [facility] Past Medical History Medical History Obese Elevated liver enzymes Nondisplaced fracture of medial malleolus of left tibia Osteoporosis Heart attack Arthritis Anxiety Anemia Hyperlipemia Closed left ankle fracture Heart disease Hypertension Surgical History Surgical History History of History of tonsillectomy History of heart surgery Double bypass History of hysterectomy Family History Family History (Reviewed 06/25/25 @ 18:05 by Anjelica Roque, [facility], ) Father Acute myocardial infarction Mother Hypertension Diabetes mellitus Other Cerebrovascular accident Depression Social History Social History (Reviewed 06/25/25 @ 18:05 by Anjelica Roque, [facility], ) Smoking status: Former smoker Tobacco type: cigarettes Second hand tobacco smoke exposure: Yes Smoking end date: 09/18/04 Alcohol intake: current Substance use: never Living arrangements: with family Occupation/Education: unemployed Gender identity (if verbalized by the patient): Female Sexual Orientation (if Verbalized by the Patient): Straight or Heterosexual Comments At time of signature, I have reviewed and agree with nursing past medical, surgical, social and family history unless otherwise noted. Please see nursing chart for further information. There is no relevant family history pertinent to the presenting complaint Exam Narrative: GENERAL: Well-appearing, well-nourished, and in no acute distress. HEAD: Normocephalic, atraumatic. EYES: EOMI. No redness or drainage. Conjunctivae normal. ENT: Mucous membranes pink and moist. NECK: Normal AROM. CHEST: No respiratory distress. EXTREMITIES: Left shoulder: Tenderness to the anterior and superior shoulder soft tissue. No bony tenderness. No tenderness to the posterior shoulder. Pain with range of motion of the shoulder at approximately 90? in all directions as well as internal and external rotation. No tenderness to the biceps or triceps. No edema, ecchymosis, deformity noted. Distal sensation intact. Capillary refill normal. Radial pulse normal. SKIN: Warm, dry, no rash. Capillary refill normal. Normal skin turgor. NEURO: No focal deficits. Alert and oriented x3. Gait steady. PSYCH: Normal affect. No signs of depression or anxiety. Course Course Level of Care: Express Care Visit Vital Signs Vital signs: Vital Signs Temperature 98.2 F 06/25/25 16:38 Pulse Rate 80 06/25/25 16:38 Respiratory Rate 16 06/25/25 16:38 Blood Pressure 183/95 H 06/25/25 16:38 Pulse Oximetry 96 06/25/25 16:38 Oxygen Delivery Room Air 06/25/25 16:38 Temperature 98.2 F 06/25/25 16:38 Pulse Rate 80 06/25/25 16:38 Respiratory Rate 16 06/25/25 16:38 Blood Pressure 183/95 H 06/25/25 16:38 Pulse Oximetry 96 06/25/25 16:38 Oxygen Delivery Room Air 06/25/25 16:38 Reviewed MDM - Extremity Injury (Upper) MDM Narrative Medical decision making narrative: 54-year-old female patient presents today with left shoulder pain. This morning around 10:00 a.m., patient was reaching above her head at work and felt a sharp pain in her anterior shoulder that then radiated down to her hand. As she continued to work she noted some tingling to the arm and hand as well. Upon exam, Tenderness to the anterior and superior shoulder soft tissue. No bony tenderness. No tenderness to the posterior shoulder. Pain with range of motion of the shoulder at approximately 90? in all directions as well as internal and external rotation. Recommend ice and continued NSAID with ortho follow up. She has no bony tenderness, deformity, or traumatic injury to indicate an xray at this time. Patient agrees with plan. Differential Diagnosis Differential diagnosis: Likely other (Shoulder strain, ligamentous injury,AC separation, rotator cuff injury) Critical Care Time Critical Care Time Critical Care Time: No Discharge Plan Discharge Clinical Impression: Injury of left shoulder Qualifiers: Encounter type: initial encounter Qualified Code(s): S49.92XA - Unspecified injury of left shoulder and upper arm, initial encounter Patient Disposition: Home Condition: Stable Instructions: Shoulder Pain (ED) Additional Instructions: Please take the diclofenac as prescribed. Apply ice for the 1st 24 hours, then switch to heat. Follow-up with your employer regarding workman's compensation requirements. It is recommended that you follow-up with orthopedics for further evaluation of your shoulder. Patient Language: Vietnamese Prescriptions: New diclofenac sodium 50 mg tablet,delayed release (DR/EC) 50 mg PO TID PRN (Reason: pain) Qty: 20 0RF No Action amlodipine 5 mg tablet 5 mg PO DAILY metoprolol tartrate 50 mg tablet 50 mg PO DAILY furosemide 20 mg tablet 20 mg PO DAILY lisinopril 40 mg tablet 40 mg PO DAILY aspirin 81 mg Tablet,Chewable 81 mg PO DAILY hydralazine 25 mg tablet hydralazine 50 mg tablet atorvastatin 80 mg tablet 80 mg PO DAILY Follow-up/Referrals: Verónica,CIARA Mendoza [Primary Care Provider, Unknown] Holger Sanz MD [Physician, Orthopedics] Time of Disposition: 16:57
== END 2025-06-25 17:01 | disposition home or self-care (01) ==
PROVIDERS: Emergency Provider Nurse Practitioner; PCP Physician Assistant
DX: S49.92XA Unspecified injury of left shoulder and upper arm, initial encounter (principal); X58.XXXA Exposure to other specified factors, initial encounter; Y99.0 Civilian activity done for income or pay; I10 Essential (primary) hypertension; E78.5 Hyperlipidemia, unspecified; M19.90 Unspecified osteoarthritis, unspecified site; I25.2 Old myocardial infarction; M81.0 Age-related osteoporosis without current pathological fracture; E66.9 Obesity, unspecified; Z68.38 Body mass index [BMI] 38.0-38.9, adult; Z95.1 Presence of aortocoronary bypass graft; Z79.82 Long term (current) use of aspirin
CPT/HCPCS: 99213; G0463